=== PATIENT | male | born 1985 | race Caucasian/White ===

== ENCOUNTER 2023-10-26 09:46 | Observation (INO) ==
--- NOTE | 2023-10-04 09:35 | PAT Medication Instructions ---
Medication Instructions Date of Service October 04, 2023 Home Medications Medication Instructions Recorded lorazepam 0.5 mg tablet 0.5 mg PO DAILY PRN anxiety #10 05/16/23 tabs bupropion HCl (smoking deter) 150 150 mg PO BID #60 tabs 06/02/23 mg tablet,12 hr sustained-release(smoking deterrent) acetaminophen 500 mg tablet (Tylenol Extra Strength) 1,000 mg PO Q6H PRN Fever Or Pain ibuprofen 200 mg tablet 400 mg PO Q6H PRN Pain fluticasone 250 mcg-salmeterol 50 mcg/dose blistr powdr for inhalation (Advair Diskus) 1 inh inhalation ONCE PRN prn ondansetron HCl 4 mg tablet 4 mg PO UD PRN prn albuterol sulfate 90 mcg/actuation aerosol inhaler inhalation PRN prn lorazepam 0.5 mg tablet 0.5 mg PO DAILY PRN anxiety bupropion HCl (smoking deter) 150 mg tablet,12 hr sustained-release(smoking deterrent) 150 mg PO BID ASK your surgeon for instructions ibuprofen 200 mg tablet 400 mg PO Q6H PRN Pain Take morning of surgery With a small sip of water, OTHERWISE NOTHING TO EAT OR DRINK AFTER MIDNIGHT: acetaminophen 500 mg tablet (Tylenol Extra Strength) 1,000 mg PO Q6H PRN Fever Or Pain (if needed) fluticasone 250 mcg-salmeterol 50 mcg/dose blistr powdr for inhalation (Advair Diskus) 1 inh inhalation ONCE PRN prn (if needed) ondansetron HCl 4 mg tablet 4 mg PO UD PRN prn (if needed) albuterol sulfate 90 mcg/actuation aerosol inhaler inhalation PRN prn (use if needed; please bring with you to hospital day of surgery if possible) lorazepam 0.5 mg tablet 0.5 mg PO DAILY PRN anxiety (if needed) bupropion HCl (smoking deter) 150 mg tablet,12 hr sustained-release(smoking deterrent) 150 mg PO BID Take evening before surgery acetaminophen 500 mg tablet (Tylenol Extra Strength) 1,000 mg PO Q6H PRN Fever Or Pain (if needed) fluticasone 250 mcg-salmeterol 50 mcg/dose blistr powdr for inhalation (Advair Diskus) 1 inh inhalation ONCE PRN prn (if needed) ondansetron HCl 4 mg tablet 4 mg PO UD PRN prn (if needed) albuterol sulfate 90 mcg/actuation aerosol inhaler inhalation PRN prn (if needed) lorazepam 0.5 mg tablet 0.5 mg PO DAILY PRN anxiety (if needed) bupropion HCl (smoking deter) 150 mg tablet,12 hr sustained-release(smoking deterrent) 150 mg PO BID Other Notes If you have any questions please call us at [phone] or [phone] or [phone] or [phone]
--- NOTE | 2023-10-10 11:03 | Anesthesiology Consultation ---
Date of Service October 10, 2023 Assessment & Plan (1) Encounter for pre-operative examination: - Infectious disease screening: Per assessment on 10/10/23: No known infectious disease contacts or current infectious disease symptoms. No noted Covid positive test result in past 90 days. - Outpatient joint assessment: Pt currently scheduled for inpatient pathway. If surgeon requests review for outpatient joint pathway, patient is an acceptable candidate for outpatient joint program from anesthesia standpoint pending surgeon's office assessment that patient is motivated, has good support and completes [facility] preop requirements. - Patient acceptable risk for surgery pending surgeon-ordered PCP preop evaluation (KATE, appt 10/11). Chart Review Chart Review: Patient seen in Pre Admission Testing Teaching & Discussion Pre-Anesthesia Teaching/Discussion Notes: Instructed NPO after midnight before surgery,except medications with 15 cc of water. Medication instructions provided according to the PAT guidelines. History Surgery Operation Date: 10/26/23 08:50 Proposed Procedures p Left Total Hip Arthroplasty - Nacho Clay MD Operation Date: 10/26/23 08:50 Proposed Procedures p Left Total Hip Arthroplastsy - Nacho Clay MD Height/Weight Height: 5 ft 10 in Weight: 77.9 kg Allergies Allergy/AdvReac Type Severity Reaction Status Date / Time No Known Allergies Allergy NONE Unverified 10/04/23 08:30 Medications Home Medications Medication Instructions Recorded Confirmed Last Taken acetaminophen 500 mg tablet 1,000 mg PO Q6H PRN Fever Or Pain 12/08/21 06/27/23 12/07/21 (Tylenol Extra Strength) ibuprofen 200 mg tablet 400 mg PO Q6H PRN Pain 12/08/21 06/27/23 12/08/21 02:00 fluticasone 250 mcg-salmeterol 50 1 inh inhalation ONCE PRN prn 11/14/22 06/27/23 Unknown mcg/dose blistr powdr for inhalation (Advair Diskus) ondansetron HCl 4 mg tablet 4 mg PO UD PRN prn 11/14/22 06/27/23 Unknown albuterol sulfate 90 mcg/actuation inhalation PRN prn 05/16/23 06/27/23 Unknown aerosol inhaler lorazepam 0.5 mg tablet 0.5 mg PO DAILY PRN anxiety #10 05/16/23 06/27/23 Un known tabs bupropion HCl (smoking deter) 150 150 mg PO BID #60 tabs 06/02/23 06/27/23 Unknown mg tablet,12 hr sustained-release(smoking deterrent) Past Medical History Medical History History of COVID-19 x2, most recent 2021 Hx of gout Post traumatic stress disorder Asthma Anxiety Exercise / Class Metabolic Activity II 4-5 Yardwork/Stairs/Walk up hill Past Family History Family History Grandfather (Paternal) Myocardial infarction Other Ovarian cancer Denies family history of Prostate cancer Breast cancer Colorectal cancer Hypertension Past Surgical History Surgical History Status post surgery right hand elbow Past Anesthesia History No Hx of Anesthesia Complications and No Family Hx of Anesthesia Complications History of PONV No Hx of PONV and No Hx of Motion Sickness Social History Smoking Status: Former smoker Do You Dip or Chew Tobacco: No Smoking End Date: Quit smoking/vaping 3 months ago Hx Alcohol Use: No (No current/recent ETOH use, Hx [facility] 10/2022 for 30 days) Hx Substance Use: No Review of Systems Patient denies chest pain, shortness of breath, dyspnea on exertion, fever, chills, cough, wheezing, palpitations. Physical Exam Vital Signs VITALS BP 132/90 P 90 TEMP 98.9 SP02 98%RA RESP 18 PHYSICAL Full cervical extension range of motion. Full TMJ range of motion. TMD 4 finger breaths Mallampati Score 1 Dentition: intact, + possible crown Lungs: clear throughout to auscultation Cardiac: regular rate and rhythm, no murmurs noted Spine: normal Carotid arteries: negative bruit Extremities: no LE edema Trimmed roque Lab Results Anesthesia Preop Results Results Anesthesia Widget: WBC 8.99 K/ul (4.8-10.8) 10/10/23 Hgb 16.1 g/dl (14.0-18.0) 10/10/23 Hct 47.4 % (42.0-52.0) 10/10/23 Plt 192 K/uL (130-400) 10/10/23 Na 138 mmol/L (136-145) 10/10/23 K 4.1 mmol/L (3.5-5.1) 10/10/23 Cl 102 mmol/L (98-107) 10/10/23 CO2 30 mmol/L (21-32) 10/10/23 BUN 12 mg/dl (6-23) 10/10/23 Creat 1.06 mg/dl (0.6-1.4) 10/10/23 Glucose Level 126 mg/dl (70-99(Fasting)) H 10/10/23 PT 11.0 Seconds (9.0-12.0) 10/10/23 PTT 31.8 Seconds (21.0-31.0) H 10/10/23 INR 1.0 (0.9-1.1) 10/10/23 Urine Color Yellow 10/10/23 Urine Appearance Clear (Clear) 10/10/23 Urine pH 7.5 (4.5-7.5) 10/10/23 Urine Specific [place] 1.011 (1.000-1.030) 10/10/23 Urine Protein Negative (Negative) 10/10/23 Urine Glucose (UA) Negative (Negative) 10/10/23 Urine Ketones Negative (Negative) 10/10/23 Urine Blood Negative (Negative) 10/10/23 Urine Nitrite Negative (Negative) 10/10/23 Urine Bilirubin Negative (Negative) 10/10/23 Urine Urobilinogen Negative (Negative) 10/10/23 Urine Leukocyte Esterase Negative (Negative) 10/10/23 Blood Type O Positive 10/10/23 Antibody Screen NEGATIVE 10/10/23 Testing Electrocardiogram Date: 10/10/23 NSR at 95bpm. SANTOS. iRBBB. Rightward axis. 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 Chest X-Ray Date: 10/10/23 FINDINGS: No lines and tubes are seen. The cardiomediastinal silhouette is normal. The lungs are clear. No evidence of pleural effusion or pneumothorax. IMPRESSION: No acute abnormalities and in particular no radiographic evidence of pneumonia.
[~2023-10-26 09:46] MED LIST: ACETAMINOPHEN 500 MG TAB PO SCH; BUPIVACAINE 0.5 % 5 MG/1 ML PF 10ML VIAL ONE; CeleBREX 200 MG CAP PO SCH; FAMOTIDINE 20 MG TAB PO SCH; LR 500ML BOLUS, THEN 15ML/HR IV SCH; LR 60ML/HR IV SCH; ROPIVACAINE 0.5% HCL/PF 150 MG, BUPIVACAINE 0.75% MPF 20 ML, EPINEPHrine 0.15 MG, Ketor... INFIL SCH; Scopolamine 1 MG TDSY TD SCH; TRANEXAMIC ACID 1,000 MG **IV Intra-op IV SCH; TRANEXAMIC ACID 1,000 MG **IV Pre-op IV SCH; ceFAZolin 2000MG 2,000 MG/15 ML SYR IV SCH; dexAMETHasone 4 MG TAB PO SCH; traMADol HCL 50 MG TABLET PO SCH
[2023-10-26] MEDS ORDERED: PROPOFOL IV EMULSION 10 MG/ML 20 ML VIAL IV ONE (10:12)
[2023-10-26] MEDS ORDERED: MIDAZOLAM HCL 1 MG/ML 2ML VIAL ONE (10:12)
[2023-10-26] MEDS ORDERED: LIDOCAINE 2% 2 ML VIAL/AMP(20MG/ML) INFIL ONE (10:12)
[2023-10-26] MEDS ORDERED: fentaNYL citrate PF 100 MCG/2 ML VIAL ONE ×2 (10:13→12:45)
[2023-10-26] MEDS ORDERED: fentaNYL citrate PF 100 MCG/2 ML VIAL IV PRN (10:58)
[2023-10-26] MEDS ORDERED: ATROPINE SULFATE 0.1 MG/ML 10ML SYR IV PRN (10:58)
[2023-10-26] MEDS ORDERED: ONDANSETRON INJ 2 MG/ML 2 ML VIAL IV PRN ×2 (10:58→13:58)
[2023-10-26] MEDS ORDERED: ePHEDrine sulfate 50 MG/ML AMP IV PRN (10:58)
[2023-10-26] MEDS ORDERED: PHENYLEPHRINE 100MCG/ML 5ML SYR IV PRN (10:58)
[2023-10-26] MEDS ORDERED: LABETALOL HCL IV 5 MG/ML 20ML IV PRN (10:58)
--- NOTE | 2023-10-26 11:01 | History & Physical Bridge Note ---
Date of Service October 26, 2023 History & Physical Bridge Note I have examined the patient, reviewed the History & Physical and in the interval since the performance of the History & Physical I have noted the following changes of clinical significance: no changes noted
[2023-10-26] MEDS ORDERED: ORTHO JOINT ANESTHETIC ONE (11:12)
--- NOTE | 2023-10-26 13:27 | Operative Report ---
Post Operative Report Pre & Post Diagnosis Operation Date: 10/26/23 11:20 Pre-Op Diagnosis: Left Hip Avascular Necrosis Post-Op Diagnosis: Left Hip Avascular Necrosis I identified the patient and participated in the time-out.: Yes Procedure Operation Date: 10/26/23 11:20 Actual Procedures p Left Total Hip Arthroplastsy--Uncemented(Left) - Nacho Clay MD Surgeon Nacho Clay MD Electronics Production Supervisor SARAI Carver PA-C. No resident or fellow was available to assist. Estimated Blood Loss 100 Findings Consistent with Post-Op Diagnosis Specimens Left femoral head Anesthesia Type Spinal MAC Complications none Disposition Disposition: Recovery Room Indications 38-year-old male with severe left greater than right hip pain. X-rays demonstrate advanced avascular necrosis with collapse of the superior femoral head. Surgery is indicated to relieve pain and promote function. I do long discussion with him about the risks and benefits of surgery, alternatives to surgery, and expected outcomes. After reviewing all these he elected to proceed with surgery. All questions were answered. Informed consent was signed. Description of Procedure Patient was identified in the preoperative holding area where the surgical site, left hip, was marked. A spinal anesthetic was placed, then the patient was brought back to the main operating room, placed in the operating table and moved into the lateral decubitus position. Axillary roll was placed. All bony prominences were padded. Perioperative antibiotics and tranexamic acid 1 gram IV were administered. The operative extremity was prepped and draped in the normal sterile fashion. Prior to incision a multidisciplinary timeout was called. All in the room were in agreement. We began by making an incision for a posterior approach to the hip. We dissected down through subcutaneous tissues to the level of the fascia. The fascia was incised in line with the incision. Charnley bow was placed. Fatty tissue was reflected posteriorly off the back of the greater trochanter to expose the piriformis and short external rotators of the hip. Quadratus femoris was taken off the femur subperiosteally. The piriformis and short ext ernal rotators were dissected off the posterior aspect of the hip. A box cut was made in the capsule. Inferior hip capsule was released off the femur. The femoral head was dislocated. The femoral neck cut was made at our preoperative template. The acetabulum was then exposed. The labrum was sharply excised. Contents of the cotyloid fossa were removed with electrocautery. We then began reaming at a size 8 mm less than our preoperative template. We reamed up by [address] the way up to a size 56 mm cup. This gave us good bleeding cancellus bone circumferentially. The acetabulum was then irrigated out and dried. The real Martin Gription cup was then impacted down into position with 45 degrees of lateral opening and 25 degrees of anteversion. Two cancellous bone screws were placed up into the ilium. Excellent fixation was obtained. A trial liner for a 36 mm femoral head was then placed. Next we turned our attention to the femur. The lateral neck was removed with a box osteotome. Intramedullary guide was used to establish the intramedullary canal. We then broached all the way up to a size 4. We began trialing with a standard offset neck and a +5 head. Hip was reduced. Leg lengths were symmetric. The hip was stable in extension and external rotation, and stable in the sleeper position. At 90 degrees of hip flexion the hip could be internally rotated 55 degrees before levering out of the cup. I was very happy with the stability exam. Therefore the hip was dislocated and the femoral trial was removed. The acetabulum was re-exposed, and the trial liner was removed. Dawson hole eliminator screw was placed. An Altrx polyethylene liner for a 36 mm femoral head was then impacted into the shell. The locking mechanism was checked to ensure that it had engaged which it had. The femur was re-exposed. The femoral canal was irrigated and dried. The real size 4 standard offset Actis femoral stem was opened up. This was impacted down into position. The 36 mm ceramic femoral head with +5 mm offset was opened up and gently impacted down onto the trunnion. The hip was atraumatically reduced. Another 1 gram of IV tranexamic acid was started prior to closure. The wound was irrigated out with sterile Betadine solution. The periarticular injection cocktail was then placed. The short external rotators, piriformis, and posterior capsule were repaired through drill holes in the greater trochanter using #2 Vicryl. The fascia was run with a looped #1 PDS. The subcutaneous layer was closed with #1 PDS. The dermal layer was closed with 2-0 Vicryl. Zip line was used for the skin followed by a Silverlon dressing. A compressive dressing was then placed. The patient was then rolled supine. Leg lengths were rechecked and were symmetric. An abduction pillow was placed. Sedation was lifted and the patient was transferred to the recovery room in stable condition. Summary of implants: Depuy Martin Gription Acetabular Shell Sector Cup, 56 mm outer diameter 2 Martin Cancellous bone screws, 6.5 x 40 and 25 mm Dawson hole eliminator Martin Altrx Polyethylene Acetabular Liner, Neutral, with a 36 mm inner diameter DePuy Actis collared cementless Femoral stem, 12/14 taper, size 4 standard offset 36 mm ceramic femoral head with +5 offset Postoperative course: Patient will be discharged home from the recovery room. Patient will be weightbearing as tolerated with posterior hip precautions. Aspirin for DVT prophylaxis I attest to the content of the Intraoperative Record and any orders documented t herein. Any exceptions are noted below.
--- NOTE | 2023-10-26 13:28 | Operative Report ---
Post Operative Report Pre & Post Diagnosis Operation Date: 10/26/23 11:20 Pre-Op Diagnosis: Left Hip Avascular Necrosis Post-Op Diagnosis: Left Hip Avascular Necrosis I identified the patient and participated in the time-out.: Yes Procedure Operation Date: 10/26/23 11:20 Actual Procedures p Left Total Hip Arthroplastsy--Uncemented(Left) - Nacho Clay MD Surgeon Nacho Clay MD Fitness And Wellness Coordinator Deon Carver PA-C Estimated Blood Loss 100 Findings Consistent with Post-Op Diagnosis Specimens femoral head Description of Procedure I was present during the entire case assisting with positioning, prepping, draping, wound retraction, wound closure and dressing application. No fellow present. Please see Dr. Clay procedure note for specifics of the case. I attest to the content of the Intraoperative Record and any orders documented therein. Any exceptions are noted below.
[2023-10-26] MEDS ORDERED: oxyCODONE/ACETAMINOPHEN 5mg/325mg TAB PO PRN (13:29)
[2023-10-26] MEDS ORDERED: FLUMAZENIL 0.1 MG/1 ML 10 ML VIAL IV ONE (13:38)
[2023-10-26] MEDS ORDERED: KETOROLAC 30 MG/ML VIAL ONE (13:39)
[2023-10-26] MEDS ORDERED: ONDANSETRON INJ 2 MG/ML 2 ML VIAL ONE (13:39)
[2023-10-26] MEDS ORDERED: ALUMINUM/MAGNESIUM SUSP 30 ML UDC PO PRN (13:58)
[2023-10-26] MEDS ORDERED: TAMSULOSIN HCL 0.4 MG CAP PO PRN (13:58)
[2023-10-26] MEDS ORDERED: MAGNESIUM HYDROXIDE SUSP 30 ML UDC PO PRN (13:58)
[2023-10-26] MEDS ORDERED: NALOXONE HCL 0.4 MG/1 ML VIAL/CARP IV PRN (13:58)
[2023-10-26] MEDS ORDERED: diphenhydrAMINE 50 MG/ML VIAL IV PRN (13:58)
[2023-10-26] MEDS ORDERED: bisacodyL 10 MG SUPP PR PRN (13:58)
[2023-10-26] MEDS ORDERED: METOCLOPRAMIDE HCL INJ 5 MG/ML 2 ML VIAL IV PRN (13:58)
[2023-10-26] MEDS ORDERED: ACETAMINOPHEN 500 MG TAB PO PRN (14:01)
[2023-10-26] MEDS ORDERED: LORazepam 0.5 MG TAB PO PRN (14:01)
[2023-10-26] MEDS ORDERED: FLUTICASONE/VILANTEROL 200/25MCG 14 PUFFS/INHALER INH PRN (14:11)
--- NOTE | 2023-10-26 14:19 | Anesthesiology Progress Note ---
Date of Service October 26, 2023 Anesthesia Post Procedure Vital Signs Vital Signs: Temp Pulse Pulse Resp BP Pulse Ox O2 Del Method 10/26/23 14:00 96 H 18 138/86 97 Room Air 10/26/23 13:50 97 H 16 129/85 95 Room Air 10/26/23 13:40 110 H 15 130/79 96 Oxymask 10/26/23 13:33 36.1 C L 107 H 12 127/77 95 Oxymask 10/26/23 10:27 36.6 C 96 H 20 138/86 97 Room Air O2 Flow Rate 10/26/23 14:00 10/26/23 13:50 10/26/23 13:40 5 10/26/23 13:33 5 10/26/23 10:27 Transfer of Care Handoff Completed per policy Notes Mental Status: alert / awake / arousable Patient Amnestic to Procedure: Yes Nausea / Vomiting: adequately controlled Pain: adequately controlled Airway Patency, RR, SpO2: stable & adequate BP & HR: stable & adequate Hydration State: stable & adequate Neuraxial Anesthesia: was administered and sensory block is resolving Anesthetic Complications: no major complications apparent and Pt Satisfied with anesthetic care
[2023-10-26] MEDS: Scopolamine CHECK PATCH PLACEMENT SCH ×2 (15:14→23:10)
[2023-10-26] MEDS: SODIUM CHLORIDE 0.9% 1,000 ML IV SCH (15:14)
[2023-10-26] MEDS: ACETAMINOPHEN 500 MG TAB PO SCH ×2 (15:26→21:25)
[2023-10-26] MEDS: KETOROLAC TROMETHAMINE 15 MG/ML VIAL IV SCH ×2 (15:26→23:10)
--- NOTE | 2023-10-26 15:31 | XRay Report ---
XR pelvis 1-2V routine CLINICAL HISTORY: Post Surgical TECHNIQUE: A single frontal view of the pelvis was obtained. Comparison: Comparison is made to pelvis radiograph 10/10/2023 FINDINGS: Patient is status post total hip arthroplasty with expected postsurgical changes including soft tissu e swelling, and subcutaneous emphysema. No periarticular lucency or hardware fracture is seen. Partia l visualization of avascular necrosis of the right femoral head. IMPRESSION: Expected postoperative appearance status post placement of total hip arthroplasty. ACT 112: Negative or not required by law. Electronically signed by: Jose Neves M.D. 10/26/2023 3:29 PM
[2023-10-26] MEDS ORDERED: TRANEXAMIC ACID / 0.7% NACL 1,000 MG/100 ML BAG IV SCH (20:00)
[2023-10-26] MEDS: ceFAZolin 2000MG 2,000 MG/15 ML SYR IV SCH (20:02)
[2023-10-26] MEDS: buPROPion SR 150 MG TABCR PO SCH (20:11)
[2023-10-26] MEDS: DOCUSATE SODIUM 100 MG CAP PO SCH (20:11)
[2023-10-26] MEDS ORDERED: SENNA 8.6 MG TAB PO SCH (21:00)
[2023-10-27] MEDS: oxyCODONE HCL IR 5 MG TAB (IMMEDIATE RELEASE) PO PRN ×2 (01:13→08:30)
[2023-10-27] MEDS: SODIUM CHLORIDE 0.9% 1,000 ML IV SCH (01:23)
[2023-10-27] MEDS: ceFAZolin 2000MG 2,000 MG/15 ML SYR IV SCH (03:31)
[2023-10-27] MEDS: KETOROLAC TROMETHAMINE 15 MG/ML VIAL IV SCH (06:24)
[2023-10-27] MEDS: ACETAMINOPHEN 500 MG TAB PO SCH (06:24)
[2023-10-27] MEDS ORDERED: dexAMETHasone 4 MG TAB PO SCH (08:00)
[2023-10-27] MEDS: Scopolamine CHECK PATCH PLACEMENT SCH (08:26)
[2023-10-27] MEDS: buPROPion SR 150 MG TABCR PO SCH (08:31)
[2023-10-27] MEDS: DOCUSATE SODIUM 100 MG CAP PO SCH (08:32)
[2023-10-27 08:37] LABS: Basophils # (auto) 0.02 K/uL (0.00-0.20); Basophils % (auto) 0.1 %; Hematocrit (blood only) 40.8 % (42.0-52.0); Hemoglobin 13.4 g/dl (14.0-18.0); Immature Granulocytes # (auto) 0.08 K/uL (0.01-0.20); Immature Granulocytes % (auto) 0.5 %; Lymphocytes # (auto) 0.95 K/uL (1.20-3.40); Lymphocytes % (auto) 6.4 %; Mean Corpuscular Hemoglobin 27.2 pg (25.0-34.0); Mean Corpuscular Hgb Conc 32.8 g/dL (32.0-36.0); Mean Corpuscular Volume 82.8 fL (80.0-100.0); Mean Platelet Volume 9.7 fL (9.4-12.4); Monocytes # (auto) 0.75 K/uL (0.11-0.59); Monocytes % (auto) 5.1 %; Neutrophils # (auto) 13.05 K/uL (1.40-6.50); Neutrophils % (auto) 87.9 %; Platelet Count 200 K/uL (130-400); RDW Coefficient of Variation 13.2 % (11.5-14.5); RDW Standard Deviation 39.8 fL (36.4-46.3); Red Blood Count 4.93 M/uL (4.70-6.10); White Blood Count 14.85 K/ul (4.8-10.8)
[2023-10-27] MEDS ORDERED: allopurinoL 100 MG TAB PO SCH (09:00)
[2023-10-27] MEDS ORDERED: ASPIRIN 81 MG ECTAB PO SCH (09:00)
[2023-10-27] MEDS ORDERED: MULTIVITAMIN TAB PO SCH (09:00)
[2023-10-27 09:10] LABS: BUN Creatinine Ratio 9.8 (10-20); Creatinine Clr Calc Pharmacy 110.2 ml/min; Est GFR (African American) 120.2 ml/min; Est GFR (Non-African American) 103.7 ml/min; Potassium 4.1 mmol/L (3.5-5.1)
--- NOTE | 2023-10-27 09:29 | Discharge Summary ---
Date of Service October 27, 2023 Admission HPI Per Admitting Provider History of Present Illness Daniel is a 38-year-old male here today for his preoperative history and physical for left total hip arthroplasty with Dr. Clay. He he does have some pain in his right hip as well but its not as severe as his left hip. He says his pain started last summer but really got bad about 2 months ago he was doing a lot of cycling out of the ordinary and afterwards he had some tightness in his groin. He said that the tightness got worse and he was unable to lift his left leg and had trouble getting up in a motorcycle. He was then in [place] fishing with his son and he slipped and that exacerbated this pain as well. He notes some clicking in his left hip. He describes most of his pain in the groin area he says sometimes he does get pain posterior as well. He was taking ibuprofen 600 mg as needed and then he was given a prescription for diclofenac which she said he took with it did upset his stomach. He has difficulty putting on socks and shoes and flexing his hip up. He says it does not hurt as much when he is weightbearing or when he is standing but it does aggravate him with any type of movement with his hip including walking or going from sitting to standing. His pain does not radiate anywhere. He denies any numbness or tingling down his legs or any back pain. He is self-employed working in construction and does a lot of walking every day. 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 The plan is to undergo a left total hip arthroplasty and then about 3 months later undergo a right total hip arthroplasty. He brings up today that he has a muscle defect in his right anterior thigh from a heavy bar falling across his leg. When he flexes his hip up he gets a buildup deformity in his anterior thigh. It is not painful and does not bother him or cause him any deficits but he felt like he should mention it today. He denies any major medical issues. He was an alcoholic and drank heavily for about 10 years but he has been sober for the last year. [1] He denies a latex or rubber glove allergy, history of MRSA, and history of blood clots. [2] Admission Exam Per Admitting Provider Physical Exam Height 177 cm, weight 77 kg, blood pressure 128/90, pulse 101, temperature 36.2, pulse ox 97% General: Pt is well nourished, seated on the exam table AA&O, in NAD, calm and cooperative during exam HENT: Nontraumatic, no gross deformity, hearing and vision grossly in-tact, PERRL Heart: +S1, +S2, RRR, no murmurs appreciated Lungs: CTABL, no wheezing appreciated Focusing on the patient's left lower extremity: Palpable DP and PT pulses Sensation intact to light touch L3 to S1 dermatomes ROM: Flexion 90/ Abduction 30/ External rotation 40/ Internal rotation 10 - Log roll + Scour test + Impingement test - KOKO test + Stinchfield test [3] Patient has no pain when palpating about his left hip. He has pain with internal rotation, no pain with external rotation. He is unable to do a straight leg raise due to pain and weakness. He is able to flex his hip up when sitting at a 90 degree angle and hold against resistance but he does report some pain with this. He has some pain with abduction. I examined his right hip leg where he was concerned about the muscle deformity and there is in his proximal quadriceps there is a deformity/mass noted in the soft tissue that is evident when he flexes up his hip. He has no pain. His strength is intact. Principal Diagnosis Bilateral hip avascular necrosis Discharge Exam Left hip: Outer dressing was removed. Silverlon is clean dry and intact and left in place. Patient is able to actively perform a straight leg raise test and actively dorsi and plantarflex foot. Quad strength 3+ out of 5. Patient tolerates light passive hip flexion near 90 degrees. He experiences some twinges of pain with light passive internal and external hip rotation. Logroll test causes no pain. Patient is neurovascularly intact in the left lower extremity. Discharge Data Allergies Allergy/AdvReac Type Severity Reaction Status Date / Time No Known Allergies Allergy NONE Verified 10/26/23 10:06 Procedures Performed Operation Date: 10/26/23 11:20 Actual Procedures p Left Total Hip Arthroplastsy--Uncemented(Left) - Nacho Clay MD Hospital Course (1) S/P total left hip arthroplasty: Patient had an uneventful overnight stay following total hip arthroplasty. Patient states he is doing very well today. He states that the pain is well- controlled with the p.o. pain medication. Patient is anxious to be discharged home later this morning. He states that he already is established with [facility] for his in-home physical therapy for the first 2 weeks postoperatively. Total hip precautions reviewed Weightbearing as tolerated with walker assistance Abduction pillow use x 6 weeks DVT prophylaxis with aspirin and BUBBA stockings Ice with easy wrap Pain control with p.o. medication Keep Silverlon dressing in place Plan is to discharge home later this morning with an in-home physical therapy for the first 2 weeks. Follow-up at [facility] orthopedics as previously scheduled With questions contact our clinic at [phone] Total Time Total Time Spent Total Time Spent (In Minutes): 20 mins Discharge Plan Discharge Items Patient Disposition: Home - Home Health Services Reason For Visit: POST SURGICAL CARE Discharge Diagnosis: Left Femur Avascular Necrosis Activity: As commented below Lifting: None Bathing: Keep incision dry Bathing Comment: May shower tomorrow Sexual Activity: Wait until after follow-up appointment Exercise/Sports: Wait until after follow-up appointment Weightbearing Comment: as tolerated with walker assistance Non-emergency contact: Surgeon Call non-emergency contact if: you have any medication questions, your pain is not controlled, your temperature is above 101.5, your wound has increased drainage and your wound pain has increased Follow-up/Referrals: Dwayne Mcdonald CRNP [Primary Care Provider] - Diet: Regular Addtl Attending Provider Instructions: Post-operative Instructions Dear Patient and Family/Friends, Before you are discharged from the hospital, it is important to know what to expect when you get home after surgery. To that end, we have created this sheet of discharge instructions which covers many commonly asked questions. Make sure you go through this sheet in its entirety with your nurse before you are discharged. Please note that we will go over the specifics of your surgery and recovery when you return for your first post-operative visit. Sincerely, Dr. Clay Medications 1. Oxycodone 5 mg: take 1-2 tabs every 4-6 hours as needed for post op pain relief. This will be sent to your pharmacy. 2. Diclofenac Sodium 75 mg: take 1 tab twice daily for 30 days post operatively for pain and inflammation relief. This will be sent to your pharmacy with 1 refill. 3. Aspirin 81 mg: take 1 tab twice daily for 30 days post operatively for blood clot prevention. Please purchase. 4. Zofran 4 mg: take 1 tab every 6-8 hours for post op nausea relief. This will be sent to your pharmacy. 5. Cephalexin 500 mg: take 1 tab 3x/daily for 5 days post operatively for infection prevention. This will be sent to your pharmacy. 6. Extra Strength Tylenol 500 mg: take 2 tabs every 6-8 hours as needed for additional pain relief. Please purchase. Pain Expect to be in a fair amount of pain after surgery. Remember, our goal is not to eliminate your pain, but to make it tolerable. It is a good idea to stay ahead of your pain by taking the medications you were prescribed once you get home. Typically, the pain starts improving 3-7 days after surgery. You should start weaning off the narcotic pain medication (oxycodone, hydrocodone, hydromorphone, morphine) as soon as your pain improves. Please call our office if your pain is not adequately controlled. Ice Ice your operative site at least 5 times a day for 15-30 minutes at a time. Make sure you have a thin cloth between the ice or cooling unit and your skin to prevent gregory bite. This is especially important if you received a nerve block. Continue icing your operative site for the first 5-7 days after surgery, then as needed. Diet/Nausea/Vomiting Start by drinking clear liquids and eating crackers. If you can tolerate this, then you may resume your normal diet. If you feel nauseated or vomit, take Zofran/ondansetron (if prescribed). Please call our office if you have intractable nausea or vomiting, or, if after hours, you may go to the Emergency Room for help. Constipation Constipation is a common side effect of narcotic pain medication. If you have not had a bowel movement within 2 days after surgery, we recommend purchasing an over the counter laxative such as Milk of Magnesia, Dulcolax, or Miralax from a local pharmacy, and taking it as instructed. Call our clinic if any questions. Slings and Braces If you were placed in a sling or brace, it must be worn at all times, including sleep. You may remove your sling or brace for physical therapy, home exercises, and showering. The length of time you will be in your brace and range of motion restrictions depends on what surgery you had; these details will be reviewed at your first post-operative appointment. Nerve block The anesthesia team sometimes places a nerve block to help with post-operative pain control. This results in significant numbness and inability to move the extremity. The nerve block usually wears off in 8-12 hours, but sometimes can last up to 24 hours. Please call our office if you are still unable to move your extremity after 24 hours, unless you received a pain pump to take home. Nerve blocks typically wear off quickly, so start taking pain medication as soon as you start feeling soreness near your surgical site. Weight bearing and Range of Motion. Do not bear any weight through your operative extremity immediately after surgery. If you had upper extremity surgery, do not lift anything with that arm. If you are in a knee brace, keep it locked in place until your follow-up. We will discuss your weight bearing, range of motion, and lifting restrictions in detail at your first post-operative appointment. Continuous Passive Motion (CPM) Machine If you were prescribed a CPM machine, it will start after your first post- operative appointment, at which time we will give you instructions on the range of motion settings and duration of treatment Physical therapy You will be given a prescription for physical therapy or occupational therapy at your first post-operative appointment. Typically, patients start therapy within 1 week of surgery Wound care and showering We will inspect your wound at your first post-operative visit, and may do a dressing change at that time. Most patients will be in a water-proof dressing that is removed 14 days after surgery. It is normal to see some dried blood on the dressing. Do not remove your dressing, paper strips or sutures yourself unless you are given permission. Showering is allowed the day after surgery. Do not scrub or remove any dressings. The wound should not be submerged underwater (i.e. in a bathtub or pool) until 4 weeks after surgery BUBBA stockings If you were given white stockings, these are to be worn at all times except to shower (on both legs) for the first 2 weeks after surgery. Driving You may not drive while taking narcotic pain medication or while in a cast, splint, sling or brace. You, the patient, need to make the final determination about when you are safe to drive, however, the earliest you may consider driving after surgery is below: Hand/Wrist/Elbow Surgery: 3 days Shoulder Surgery: 2 weeks Hip,/Knee/Ankle Surgery: 4 weeks Fracture repair: 6 weeks Return to Work Your return to work depends on what surgery was done and what type of work you do. Please bring any paperwork your employer needs completed to your first post-operative visit. Also, bring a description of your job duties, as this helps us to understand what risks you may face at work. Travel Avoid long distance travel (greater than 1 hour) in airplanes and cars for the first 6 weeks after surgery. If you must travel, you need to have a Doppler ultrasound done before you travel to rule out a blood clot in your legs. Follow-up You should have a follow-up appointment already scheduled 1-2 days after surgery. If not, please contact our office to make this appointment before you leave the hospital. When to call the office It is normal to have swelling and bruising in the limb that was operated on. This will improve with time. It is also normal to have fevers for the first 2 days after surgery. Reasons you should call your doctor include: Uncontrolled pain; Nausea, vomiting, or constipation that does not improve with medication; Fevers over 101.5, chills, sweats; Drainage or bleeding from the wound; Foul odor; Spreading areas of redness; Any other concerns Pending Studies at Discharge: No Stand-Alone Forms: [facility] Medications and DC Order Prescriptions: New oxycodone-acetaminophen [Percocet] 5-325 mg Tablet 1 - 2 tab PO Q4H MDD Ongoing tx PRN (Reason: post op pain control) Qty: 28 0RF diclofenac sodium 75 mg tablet,delayed release (DR/EC) 75 mg PO BID 30 Days Qty: 60 1RF cephalexin 500 mg capsule 500 mg PO TID 5 Days Qty: 15 0RF Continued bupropion HCl (smoking deter) 150 mg tablet extended release 12 hr 150 mg PO BID Qty: 60 4RF Rx Instructions: Start with 1 tab daily x 5 days then increase to twice daily. ondansetron HCl 4 mg tablet 4 mg PO UD PRN (Reason: prn) fluticasone propion-salmeterol [Advair Diskus] 250-50 mcg/dose blister with device 1 inh inhalation ONCE PRN (Reason: prn) albuterol sulfate 90 mcg/actuation HFA aerosol inhaler inhalation PRN (Reason: prn) allopurinol 100 mg tablet 100 mg PO DAILY Qty: 90 3RF lorazepam 0.5 mg tablet 0.5 mg PO DAILY PRN (Reason: anxiety) Qty: 10 0RF acetaminophen [Tylenol Extra Strength] 500 mg Tablet 1,000 mg PO Q6H PRN (Reason: Fever Or Pain) Discontinued ibuprofen 200 mg Tablet 400 mg PO Q6H PRN (Reason: Pain) Admission Data Admit Date/Time: 10/26/23 13:58 Attending Provider: Nacho Clay Admit Provider: Nacho Clay Primary Care Provider: Dwayne Mcdonald
--- NOTE | 2023-10-27 09:29 | Orthopedic Progress Note ---
Date of Service October 27, 2023 Assessment & Plan (1) S/P total left hip arthroplasty: Plan: Total hip precautions reviewed Weightbearing as tolerated with walker assistance Abduction pillow use x 6 weeks DVT prophylaxis with aspirin and BUBBA stockings Ice with easy wrap Pain control with p.o. medication Keep Silverlon dressing in place Plan is to discharge home later this morning with an in-home physical therapy for the first 2 weeks. Follow-up at [facility] orthopedics as previously scheduled With questions contact our clinic at [phone] Admission and Anticipated Discharge Date Admission Date: October 26, 2023 Subjective This 38-year-old male who is day 1 status post left total hip arthroplasty. He states he is doing very well this morning. States his pain is well-controlled with p.o. pain medication. He states that he has been able to get up and maneuver to the restroom using his walker and void without issue. Currently he denies chest pain, shortness of breath, fever, chills, sweats or numbness or tingling in his left lower extremity. Patient also denies nausea, vomiting or difficulty voiding. Review of Systems Review of Systems: All systems reviewed & are unremarkable except as noted in Subjective Physical Exam Physical Exam: Left hip: Outer dressing was removed. Silverlon is clean dry and intact and left in place. Patient is able to actively perform a straight leg raise test and actively dorsi and plantarflex foot. Quad strength 3+ out of 5. Patient tolerates light passive hip flexion near 90 degrees. He experiences some twinges of pain with light passive internal and external hip rotation. Logroll test causes no pain. Patient is neurovascularly intact in the left lower extremity. Results & Data Vital Signs (Past 12 Hours) Vital Signs Temp Pulse Resp BP Pulse Ox O2 Del Method 10/27/23 07:08 36.6 C 77 16 128/66 95 Room Air 10/27/23 04:03 36.3 C L 77 18 116/67 94 Room Air 10/26/23 23:20 36.6 C 88 18 109/64 95 Room Air Diagnostic Findings Laboratory Results WBC 14.85 K/ul (4.8-10.8) H 10/27/23 08:03 RBC 4.93 M/uL (4.70-6.10) 10/27/23 08:03 Hgb 13.4 g/dl (14.0-18.0) L 10/27/23 08:03 Hct 40.8 % (42.0-52.0) L 10/27/23 08:03 MCV 82.8 fL (80.0-100.0) 10/27/23 08:03 MCH 27.2 pg (25.0-34.0) 10/27/23 08:03 MCHC 32.8 g/dL (32.0-36.0) 10/27/23 08:03 RDW Std Deviation 39.8 fL (36.4-46.3) 10/27/23 08:03 RDW Coeff of Emeterio 13.2 % (11.5-14.5) 10/27/23 08:03 Plt Count 200 K/uL (130-400) 10/27/23 08:03 MPV 9.7 fL (9.4-12.4) 10/27/23 08:03 Immature Gran % (Auto) 0.5 % 10/27/23 08:03 Neut % (Auto) 87.9 % 10/27/23 08:03 Lymph % (Auto) 6.4 % 10/27/23 08:03 [place] % (Auto) 5.1 % 10/27/23 08:03 Eos % (Auto) 0.0 % 10/27/23 08:03 Baso % (Auto) 0.1 % 10/27/23 08:03 Neut # (Auto) 13.05 K/uL (1.40-6.50) H 10/27/23 08:03 Lymph # (Auto) 0.95 K/uL (1.20-3.40) L 10/27/23 08:03 [place] # (Auto) 0.75 K/uL (0.11-0.59) H 10/27/23 08:03 Eos # (Auto) 0.00 K/uL (0.00-0.50) 10/27/23 08:03 Baso # (Auto) 0.02 K/uL (0.00-0.20) 10/27/23 08:03 Immature Gran # (Auto) 0.08 K/uL (0.01-0.20) 10/27/23 08:03 Sodium 139 mmol/L (136-145) 10/27/23 08:03 Potassium 4.1 mmol/L (3.5-5.1) 10/27/23 08:03 Chloride 105 mmol/L (98-107) 10/27/23 08:03 Carbon Dioxide 27 mmol/L (21-32) 10/27/23 08:03 Anion Gap 7 (3-11) 10/27/23 08:03 BUN 9 mg/dl (6-23) 10/27/23 08:03 Creatinine 0.92 mg/dl (0.6-1.4) 10/27/23 08:03 Est Cr Clr Drug Dosing 110.2 ml/min 10/27/23 08:03 Est GFR ( Amer) 120.2 ml/min 10/27/23 08:03 Est GFR (Non-Af Amer) 103.7 ml/min 10/27/23 08:03 BUN/Creatinine Ratio 9.8 (10-20) L 10/27/23 08:03 Glucose 154 mg/dl (70-99(Fasting)) H 10/27/23 08:03 Calcium 9.0 mg/dl (8.6-10.3) 10/27/23 08:03 Impressions Pelvis X-Ray 10/26/23 13:29 XR pelvis 1-2V routine CLINICAL HISTORY: Post Surgical TECHNIQUE: A single frontal view of the pelvis was obtained. Comparison: Comparison is made to pelvis radiograph 10/10/2023 FINDINGS: Patient is status post total hip arthroplasty with expected postsurgical changes including soft tissue swelling, and subcutaneous emphysema. No periarticular lucency or hardware fracture is seen. Partial visualization of avascular necrosis of the right femoral head. IMPRESSION: Expected postoperative appearance status post placement of total hip arthroplasty. ACT 112: Negative or not required by law. Electronically signed by: Jose Neves M.D. 10/26/2023 3:29 PM
[2023-10-27] MEDS ORDERED: CeleBREX 200 MG CAP PO SCH (21:00)
== END 2023-10-27 10:52 | disposition home health service (06) ==
LOC: 3N 09:46 → ASU 09:46